=== PATIENT | male | born 1995 | race Caucasian/White ===

== ENCOUNTER 2021-04-22 16:20 | Emergency (ER) | payer OTHER ==
[~2021-04-22] VITALS: Ht 175.3 cm; Wt 92.5 kg
[2021-04-22 16:29] VITALS: BP 160/95
--- NOTE | 2021-04-22 16:43 | NUR ---
[facility] FLORES AT BEDSIDE EVALUATING PT
[2021-04-22] MEDS ORDERED: KETOROLAC 30 MG/ML VIAL IM ONE (16:50)
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
[2021-04-22] MEDS ORDERED: IBUP-2213 PO (17:48)
[2021-04-22] MEDS ORDERED: CYCL-711 PO (17:48)
[2021-04-22 18:01] VITALS: BP 160/95
--- NOTE | 2021-04-22 18:02 | NUR ---
Patient discharged with v/s stable. Written and verbal after care instructions given and explained. Patient alert, oriented and verbalized understanding of instructions. Ambulatory with steady gait. All questions addressed prior to discharge. ID band removed. Patient advised to follow up with PMD. Rx of FLEXERIL AND IBUPROFEN given. Patient educated on indication of medication including possible reaction and side effects. Opportunity to ask questions provided and answered.
== END 2021-04-22 18:02 | disposition home or self-care (01) ==
LOC: MED 16:20
DX: S16.1XXA Strain of muscle, fascia and tendon at neck level, initial encounter (principal); S39.012A Strain of muscle, fascia and tendon of lower back, initial encounter; Z79.899 Other long term (current) drug therapy; V89.2XXA Person injured in unspecified motor-vehicle accident, traffic, initial encounter; Y93.89 Activity, other specified; Y92.410 Unspecified street and highway as the place of occurrence of the external cause; Y99.8 Other external cause status
CPT/HCPCS: 72040; 72100; 96372; 99284; J1885